=== PATIENT | male | born 1945 | race Caucasian/White ===

== ENCOUNTER 2019-06-07 05:14 | Day surgery (SDC) ==
[2019-06-07] MEDS ORDERED: LR 1,000 ML ONE ×2 (05:37→06:38)
[2019-06-07] MEDS ORDERED: REGLAN ONE (05:37)
[2019-06-07] MEDS ORDERED: PEPCID ONE (05:37)
[2019-06-07] MEDS ORDERED: KEFZOL 1 GM/D5W 2 GM/100 ML IVPB ONE (05:37)
[2019-06-07 06:02] LABS: HEMATOCRIT 41.8 % (42.0-52.0); HEMOGLOBIN 13.7 g/dL (14.0-18.0); MCH 27.7 PG (27-31); MCHC 32.8 g/dL (33-37); MCV 84.6 FL (81-99); MPV 10.1 FL (7.4-10.4); RBC 4.94 XMIL (4.7-6.1); RDW 13.5 % (11.5-14.5); WBC 6.36 X1000 (4.8-10.8)
[2019-06-07] MEDS ORDERED: DIPRIVAN 1% ONE (06:29)
[2019-06-07 06:31] LABS: AGAP 14; BUN 12 mg/dL (8-22); CALCIUM 8.8 mg/dL (8.8-10.2); CHLORIDE 105 mmol/L (98-107); COSMO 280; CREATININE 0.7 mg/dL (0.7-1.2); ESTIMATED GFR > 60; GLUCOSE 107 mg/dL (70-104); POTASSIUM 3.8 mmol/L (3.5-5.1); SODIUM 140 mmol/L (136-145); TCO2 21 mmol/L (25-35)
[2019-06-07] MEDS ORDERED: XYLOCAINE-MPF 2% ONE (06:31)
[2019-06-07] MEDS ORDERED: NORCURON ONE (06:31)
[2019-06-07] MEDS ORDERED: SODIUM CHLORIDE 0.9% 10 ML ONE ×2 (06:31→10:32)
[2019-06-07] MEDS ORDERED: FENTANYL ONE (06:33)
[2019-06-07] MEDS ORDERED: MARCAINE 0.25% PF/EPI 1:200,000 ONE (06:38)
[2019-06-07] MEDS ORDERED: B & O 16A SUPP ONE (06:38)
--- NOTE | 2019-06-07 06:57 | EKG Report ---
Test Performed on : 06/07/2019 06:36:19 AM Test Reason : preop Blood Pressure : / mmHG Vent. Rate : 076 BPM Atrial Rate : 076 BPM P-R Int : 156 ms QRS Dur : 104 ms QT Int : 394 ms P-R-T Axes : 051 028 033 degrees QTc Int : 443 ms Normal sinus rhythm. Normal ECG When compared with ECG of 06-JAN-2012 12:47, No significant change was found Confirmed by Gil HANSEN, Tremaine Lema ([id number]) on 06/07/2019 4:22:05 PM
[2019-06-07] MEDS ORDERED: QUELICIN (DOSE) ONE (07:25)
[2019-06-07] MEDS ORDERED: DECADRON ONE (07:25)
[2019-06-07] MEDS ORDERED: ZOFRAN ONE (07:25)
[2019-06-07] MEDS ORDERED: OFIRMEV 1000 MG/ISOTONIC SOLN 1,000 MG/100 ML BOTTLE ONE (08:49)
[2019-06-07 08:56] LABS: URINE SOURCE CATH
[2019-06-07 09:16] LABS: BILIRUBIN URINE NEGATIVE (NEGATIVE); BLOOD URINE NEGATIVE (NEGATIVE); COLOR YELLOW; GLUCOSE URINE NEGATIVE (NEGATIVE); KETONE URINE TRACE mg/dL (NEGATIVE); LEUKOCYTES URINE NEGATIVE (NEGATIVE); NITRITE URINE NEGATIVE (NEGATIVE); PROTEIN URINE NEGATIVE (NEGATIVE); SP GRAVITY URINE 1.012; TURBIDITY URINE CLEAR (CLEAR); UROBILINOGEN URINE NORMAL (NORMAL)
[2019-06-07 09:18] LABS: UR EPITHELIAL CELLS <10 /HPF (<10); URINE BACTERIA NEGATIVE /HPF; URINE RBC <10 /HPF (<10); URINE WBC <10 /HPF (<10)
[2019-06-07] MEDS ORDERED: SODIUM CHLORIDE 0.9% ONE (10:26)
[2019-06-07] MEDS ORDERED: NEO-SYNEPHRINE ONE (10:32)
[2019-06-07] MEDS ORDERED: EPHEDRINE ONE (10:59)
[2019-06-07] MEDS ORDERED: NEOSTIGMINE ONE (11:28)
[2019-06-07] MEDS ORDERED: ROBINUL ONE (11:28)
[2019-06-07] MEDS ORDERED: NS 1,000 ML ONE (12:30)
[2019-06-07] MEDS ORDERED: PHENERGAN IV PRN (12:45)
[2019-06-07] MEDS ORDERED: DITROPAN PO PRN (12:45)
[2019-06-07] MEDS ORDERED: BENADRYL LIQUID PO PRN (12:45)
[2019-06-07] MEDS ORDERED: SODIUM CHLORIDE 0.9% INJ PRN (12:45)
[2019-06-07] MEDS ORDERED: OXY IR PO PRN ×2 (12:45)
[2019-06-07] MEDS ORDERED: LABETALOL IV PRN (12:45)
[2019-06-07] MEDS: DILAUDID ONE ×2 (12:54→12:57)
--- NOTE | 2019-06-07 13:18 | OPERATIVE NOTE ---
PROCEDURE DATE: 06/07/2019 SURGEON: Dr. Kashmir Del Cid. PREOPERATIVE DIAGNOSIS: Prostate cancer with [place] 3 + 4 at the right apex. POSTOPERATIVE DIAGNOSIS: Prostate cancer with [place] 3 + 4 at the right apex. PROCEDURE PERFORMED: Laparoscopic robot-assisted radical retropubic prostatectomy, bilateral pelvic lymph node dissection and urethral suspension. ANESTHESIA: General endotracheal. FINDINGS: An enlarged prostate with attached seminal vesicles and vas deferens. The bilateral pelvic lymph nodes appeared normal. INDICATION FOR PROCEDURE: This 73-year-old male was noted to have an elevated PSA. Prostate biopsies revealed adenocarcinoma, [place] grade 3 + 3 and 3 + 4 and 80% of 1 core from the right apex. DESCRIPTION OF PROCEDURE: After informed consent was obtained from the patient and him receiving IV antibiotics, he was taken to the main OR, placed in the supine position. General anesthesia via laryngeal mask was achieved. He was then placed in the low lithotomy position, and prepped and draped in the usual sterile fashion for abdominal penile and perineal surgery. A 16-Filipino Zapata catheter was passed through the patient's urethra, prostate, and into the bladder. Total of 10 mL sterile water was placed in Zapata balloon. Zapata was placed to gravity drain. Since the patient had previous hernia repairs with mesh, an incision was made in the left upper quadrant area that will be the professional nursing assistant port, and a Veress needle was passed through this incision and into the abdominal cavity. After the water drop test was good, pneumoperitoneum was achieved to 15 cm of water. The Visiport was then used to place a 12 mm port. The camera was passed through this area and there were no adhesions noted; however the mesh was visualized that had been used to repair the extensive abdominal wall hernias. An incision was made just above the umbilicus and a 12 mm port was placed there under direct vision. The camera was placed through this port, and the robot trocars were placed in the standard position for radical prostatectomy with the #3 arm port just above the right anterior superior iliac spine. The #2 arm was placed 1 and a half handbreadths to the left of the umbilicus; the #1 arm was placed 1 handbreadth to the right of the umbilicus. The patient was then placed in steep Trendelenburg and the table lowered all the way. The robot was docked. The procedure was started by making an incision in the peritoneum about 2 cm above its reflection off of the rectum. This was taken back to the seminal vesicles and vas deferens. These were bluntly and sharply dissected free. The vas deferens was incised on each side. The artery to the vas was cauterized on each side. The vas deferens was bluntly and sharply dissected free on the left side, and a clip was placed on its vascular pedicle, and it was dissected back to the base of the prostate. On the right side, the seminal vesicle was somewhat adhered, and a clip was not used to secure the pedicle to the right seminal vesicle. It was able to be dissected back to the base of the prostate. Denonvilliers fascia was entered in the midline at the base of the prostate, and this was dissected laterally for a short distance on each side. Attention was then turned to the anterior abdominal wall where an incision was made in the peritoneum medial to the internal inguinal ring. This incision was then extended up lateral to the medial umbilical ligament up onto the anterior abdominal wall. Left side was accomplished similarly. The medial and median umbilical ligaments were taken down sharply, and the bladder was dropped off the anterior abdominal wall without difficulty. All fatty tissue was removed from the endopelvic fascia on the anterior and lateral sides of the prostate. The endopelvic fascia was entered lateral to the prostate, and the incision was extended up to the puboprostatic ligaments and back to the base of the prostate. The levator ani muscles were bluntly pushed off the sides of the prostate. It was noted the prostate was enlarged. The puboprostatic ligaments were taken down sharply. Both sides were accomplished similarly. The dorsal vein complex was taken down using a 2-0 V-LOC suture that was passed under the dorsal vein complex, but anterior to the urethra. The needle was then passed through the tail of the suture and the suture was pulled tight. It was then passed under the dorsal vein complex again, then through the periosteum of the pubis, back under the dorsal vein complex, and then through the periosteum of the pubis. The Zapata catheter was able to be removed and replaced after each throw of the suture. Attention was then turned to the bladder neck area where an incision was made in the bladder, and the incision was carried down along the contour of the prostate and entered into the bladder. The Zapata catheter was visualized and it was pulled back. It was noted the patient had large lateral lobes, as well as a large median lobe. The Zapata catheter was pulled out of the cystotomy and held with the third arm, and the remaining part of the anterior of the bladder was dissected off the base of the prostate. The bladder neck area was incised, first along the lateral lobes, then along the median lobe and up over on the other lateral lobe. The bladder tissue was sharply dissected off the base of the prostate. The fourth arm was then used to grasp the median lobe and it provided traction. The bladder was sharply dissected off the base of the prostate down to the previously dissected space where the seminal vesicles and vas deferens were located. The seminal vesicles and vas deferens were then pulled up, and the previous incision at Denonvilliers fascia was increased and dissected laterally. The prostate pedicles were taken down with clips on both sides, and the prostate was bluntly and sharply dissected off the rectum back to the apex of the prostate. The fourth arm was then used to place cephalad traction on the prostate and the dorsal vein complex, proximal to previously placed V-LOC suture, incised and the urethra was visualized. An incision was made approximately 2 mm distal to the apex of the prostate, and the Zapata catheter was visualized. It was pulled back. The posterior urethra was incised and the remaining fibers of the rectourethralis muscle were incised. The prostate was then moved to the side. It was noted there was some bleeding from the dorsal vein complex, mainly on the lateral side. A 16- Filipino Zapata catheter was passed through the urethra, the balloon inflated and traction was placed. Bilateral pelvic lymph node dissection was performed, first on the left side taking the adipose and carin tissue medial to the external iliac vein, dissecting down to the pubic bone and then down to the obturator nerve. The distal end of the dissection was the node of [place]. The proximal end was the bifurcation of the external and internal iliac veins. Lymphostasis and hemostasis were achieved with electrocautery and clips. Both sides were accomplished similarly. At completion, Surgicel snow was packed in the obturator fossa and on top of the obturator nerve on both sides. The left carin packet was brought out through the professional nursing assistant port without difficulty. The right carin package was placed in the Endo Catch retrieval bag with the prostate and moved out of the way. The Zapata catheter balloon was deflated and pulled back. There was still some bleeding areas seen. A 3-0 V-LOC suture was then placed in a running fashion to try to secure hemostasis of the dorsal vein complex. After this was achieved, two 3-0 V-LOC sutures had the tails tied together, and the vesicovisceral fascia was reapproximated to the rectourethralis muscle with a running suture of the 3-0 V-LOC. The bladder was anastomosed to the urethra with a running suture of 3-0 V-LOC. After the anastomosis was completed, a new 16-Filipino Zapata catheter was passed through the patient's urethra and in the bladder; 10 mL sterile water placed in Zapata's balloon. The bladder was irrigated and minimal clots returned. The bladder was distended to 60 mL and no leaking areas were seen. The Zapata catheter in the bladder was placed to gravity drain. He tolerated the procedure well. Estimated blood loss 150 mL. He was taken to the recovery room in good condition. cc: Kashmir Del Cid MD
[2019-06-07] MEDS ORDERED: OFIRMEV 1000 MG/ISOTONIC SOLN 1,000 MG/100 ML BOTTLE IV PRN (14:00)
[2019-06-07] MEDS ORDERED: VENTOLIN HFA INH PRN ×2 (14:16)
[2019-06-07] MEDS: KEFZOL 2 GM/D5W 2 GM/50 ML IVPB IV SCH ×2 (15:06→22:02)
[2019-06-07] MEDS: NS 1,000 ML IV SCH ×3 (15:06→23:21)
[2019-06-07] MEDS: ATROVENT NEB INH SCH ×2 (16:05→20:41)
[2019-06-07] MEDS: ADVAIR 250/50 DISKUS INH SCH (19:00)
[2019-06-07] MEDS ORDERED: SINGULAIR PO SCH (21:00)
[2019-06-07] MEDS: PERIDEX MT SCH (22:01)
[2019-06-07] MEDS: PEPCID PO SCH (22:01)
[2019-06-07] MEDS: COLACE PO SCH (22:01)
[2019-06-07] MEDS: FLONASE NAS SCH (22:02)
[2019-06-08] MEDS: KEFZOL 2 GM/D5W 2 GM/50 ML IVPB IV SCH (06:06)
[2019-06-08 06:56] LABS: HEMATOCRIT 36.8 % (42.0-52.0); HEMOGLOBIN 12.1 g/dL (14.0-18.0); MCH 28.5 PG (27-31); MCHC 32.9 g/dL (33-37); MCV 86.8 FL (81-99); MPV 10.5 FL (7.4-10.4); RBC 4.24 XMIL (4.7-6.1); RDW 13.7 % (11.5-14.5); WBC 9.29 X1000 (4.8-10.8)
[2019-06-08 07:04] LABS: AGAP 10; BUN 12 mg/dL (8-22); CALCIUM 8.6 mg/dL (8.8-10.2); CHLORIDE 102 mmol/L (98-107); COSMO 275; CREATININE 0.8 mg/dL (0.7-1.2); ESTIMATED GFR > 60; GLUCOSE 94 mg/dL (70-104); POTASSIUM 3.9 mmol/L (3.5-5.1); SODIUM 138 mmol/L (136-145); TCO2 26 mmol/L (25-35)
[2019-06-08] MEDS: ATROVENT NEB INH SCH (07:32)
[2019-06-08 07:41] VITALS: BP 162/76
[2019-06-08] MEDS: PERIDEX MT SCH (08:05)
[2019-06-08] MEDS: FLONASE NAS SCH (08:05)
[2019-06-08] MEDS: PEPCID PO SCH (08:06)
[2019-06-08] MEDS: COLACE PO SCH (08:06)
[2019-06-08] MEDS: ADVAIR 250/50 DISKUS INH SCH (08:25)
[2019-06-08] MEDS ORDERED: COZAAR PO SCH (12:00)
== END 2019-06-08 10:13 | disposition home or self-care (01) ==
LOC: OR 05:14 → 4N 05:14 → OR 06-08 10:13
PROVIDERS: ATTEND Urology